=== PATIENT | female | born 1980 | race Caucasian/White ===

== ENCOUNTER 2025-03-29 17:33 | Emergency (ER) | payer OTHER, SELFPAY ==
--- NOTE | 2025-03-29 19:55 | ED.GENMED ---
History of Present Illness
General
Chief Complaint: Head Injury
Source: patient
Exam Limitations: none
Time Seen by Provider: 03/29/25 18:56
Nursing documentation reviewed up to this point in time: agreed with
History of Present Illness
History of Present Illness:
44-year-old female with no past medical history states she was hiking 2 days ago and tripped on a rock, she fell striking her head, there was no loss of consciousness. She denies headache or change in vision. She has mild ecchymosis right
periorbital area. she denies neck pain or any other injury other than being generally stiff and sore she went to urgent care and they sent her here for a head CT.
Past History
Past History
ED Past Medical History: None
ED Past Surgical History: Orthopedic
Social History
Tobacco: Non-smoker
Alcohol: Occasional
Personal: Single
Employment: Employed
Review of Systems
Review of Systems
Allergies reviewed?: Yes
All Other Systems: ROS reviewed and negative except as documented in HPI and ROS
EENT: Reports other (Denies change in vision)
ABD/GI: Denies nausea
Musculoskeletal: Denies neck pain or back pain
Skin: Reports other (Mild bruising around right eye)
Neurological: Denies dizzy, headache, weakness or numbness
Phy Exam
Physical Exam
Physical Exam:
GENERAL: No acute distress. A&Ox3.
CONSTITUTIONAL: Afebrile.
EYES: clear, conjunctivae normal, EOMs intact, Mild ecchymosis right periorbital area, no swelling .
ENMT: moist mucus membranes, Pharynx nl
RESPIRATORY: Regular respirations, nonlabored, lungs clear.
CARDIOVASCULAR: Regular rate and rhythm, no murmurs, no rubs.
GI: Soft, nontender, normal BS
MUSCULOSKELETAL: No spinal bony tenderness. Moves with ease. Well perfused.
SKIN: Warm, dry, pink
PSYCH: Normal mood and affect. Well kept, interactive and appropriate
NEUROLOGIC: Awake, alert and oriented. No focal neurological deficits
Course
Orders/Labs/Results
Orders:
Orders
03/29/25 17:44
CT Head W/o Iv Contrast Urgent
Comment:
Reason For Exam: head injury, nausea
Vital Signs
Initial and Last Documented VS:
Initial Vital Signs
Temp Pulse Resp BP Pulse Ox
98.2 F 65 18 118/70 100
03/29/25 20:00 03/29/25 20:00 03/29/25 20:00 03/29/25 20:00 03/29/25 20:00
Last Documented Vital Signs
Temp Pulse Resp BP Pulse Ox
98.2 F 65 18 118/70 100
03/29/25 20:00 03/29/25 20:00 03/29/25 20:00 03/29/25 20:00 03/29/25 20:00
MDM/Problems Addressed
Differential Diagnosis Includes:
Concussion, ICH
MDM/Problems Addressed:
44-year-old female with no past medical history states she was hiking 2 days ago and tripped on a rock, she fell striking her head, there was no loss of consciousness. She denies headache or change in vision. She has mild ecchymosis right
periorbital area. she denies neck pain or any other injury other than being generally stiff and sore she went to urgent care and they sent her here for a head CT.
No sign of concussion
Head CT negative
Patient reassured
Patient ambulated out with normal gait at discharge
*Critical Care Note
Total Time (30-74mins, 75-104mins- exclusive of procedures): Not Applicable
ED Attending Note
-
Portions of this chart may have been created with voice recognition software.� Occasional wrong word or��sound alike� substitutions may have occurred due to the inherent limitations of voice recognition software.
Discharge Plan
Departure
Patient Disposition: Home (Routine Discharge)
Date of Disposition: 03/29/25
Time of Disposition: 19:58
Patient with high blood pressure during this ER visit?: No
Condition: Good
Discharge Problem:
Fall from slip, trip, or stumble, Head injury, closed, without LOC
Instructions: Head Injury in Adults (DC)
Referrals:
NONE,* [Family Provider, Internal Medicine]
Activity Restrictions/Additional Instructions:
As we discussed, your CAT scan is normal.
Interventions
Interventions:
*Risk Screen - Suicide Last Done: 03/29/25 17:39
*General Assessment Last Done: 03/29/25 17:39
*Neglect/Abuse Screening Last Done: 03/29/25 19:20
*ED- Fall Risk Assessment Last Done: 03/29/25 19:20
*ED COVID-19 Vaccine History Last Done: 03/29/25 19:20
*Nursing Disposition Last Done: 03/29/25 20:26
ED- Neurological Assessment Last Done: 03/29/25 20:00
ED-Skin Assessment Last Done: 03/29/25 20:00
Discharge Date and Time
Discharge Date/Time: 03/29/25 20:00
Print Language: TRINIDADIAN
[2025-03-29 20:00] VITALS: BP 118/70
== END 2025-03-29 20:00 | disposition home or self-care (01) ==
LOC: EMR 17:33
PROVIDERS: EMERGENCY PHYSICIAN Student in an Organized Health Care Education/Training Program
DX: S09.90XA Unspecified injury of head, initial encounter (principal); W01.0XXA Fall on same level from slipping, tripping and stumbling without subsequent striking against object, initial encounter
CPT/HCPCS: 99284; 70450